=== PATIENT | female | born 1945 | race Asian ===

== ENCOUNTER 2021-02-27 07:48 | Day surgery (SDC) | payer OTHER ==
[2021-02-27] MEDS ORDERED: diphenhydrAMINE 50 MG/ML VIAL ONE (09:34)
[2021-02-27] MEDS ORDERED: fentaNYL citrate 0.05 MG/ML VIAL ONE (09:34)
[2021-02-27] MEDS ORDERED: LIDOCAINE 2% 100 MG/5 ML UJET TP ONE ×2 (09:34→09:55)
[2021-02-27] MEDS ORDERED: MIDAZOLAM 5 MG/5 ML VIAL ONE (09:34)
[2021-02-27] MEDS ORDERED: MIDAZOLAM 2 MG/2 ML VIAL IVP ONE (09:55)
[2021-02-27] MEDS ORDERED: fentaNYL citrate 0.05 MG/ML VIAL IVP ONE (09:55)
== END 2021-02-27 10:50 | disposition home or self-care (01) ==
LOC: MDS 07:48 → MFCC 07:52 → MDS 10:50
PROVIDERS: ATTEND Internal Medicine Gastroenterology
DX: K52.9 Noninfective gastroenteritis and colitis, unspecified (principal); Z79.899 Other long term (current) drug therapy
CPT/HCPCS: 45380; J2250; J3010; 88305; J1200